=== PATIENT | male | born 1980 | race Two or more races ===

== ENCOUNTER 2018-10-04 20:22 | Emergency (ER) | payer SELFPAY ==
--- NOTE | 2018-10-04 21:59 | EKG REPORT ---
SEVERITY:- NORMAL ECG - SINUS RHYTHM : Confirmed by: Amol Cox MD 04-Oct-2018 21:58:30
[2018-10-05] MEDS ORDERED: DIAZEPAM 5 MG TABLET PO ONE (00:08)
--- NOTE | 2018-10-05 00:12 | ER Document Report ---
ED General - General Chief Complaint: Chest Pain Stated Complaint: ANXIETY Time Seen by Provider: 10/04/18 23:39 Notes: This is a 38-year-old male to the emergency department via EMS after having shortness of breath and chest pain and numbness to his face lips and fingers. Patient states that he is under a lot of stress. 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 He and his boss have not been getting along. He misses his family. Began feeling like he was short of breath. His lips, fingers and hands went numb. He thought maybe he was having a heart attack so called 911. Feels completely back to normal at this time. States he has never felt that before. Denies any pain in his calf. No prior history of blood clots. No family history of heart attacks just diabetes. TRAVEL OUTSIDE OF THE [place] IN LAST 30 DAYS: No - HPI Onset: Just prior to arrival Quality of pain: No pain Severity: Moderate Pain Level: Denies Associated symptoms: Shortness of breath, Other - Palpitations and numbness to his face and hands. - Related Data Allergies/Adverse Reactions: No Known Allergies Allergy (Unverified 10/04/18 21:31) Past Medical History - General Information source: Patient - Social History Smoking Status: Never Smoker Frequency of alcohol use: None Drug Abuse: Marijuana Lives with: Family Family History: DM Patient has suicidal ideation: No Patient has homicidal ideation: No - Medical History Medical History: Negative Renal/ Medical History: Denies: Hx Peritoneal Dialysis Review of Systems - Review of Systems Notes: Constitutional: denies: Chills, Diaphoresis, Fever, Malaise, Weakness EENT: denies: Eye discharge, Blurred vision, Tearing, Double vision, Nose congestion, Nose discharge, Throat swelling, Mouth pain Cardiovascular: denies: Heart racing, Orthopnea, Dyspnea, +Chest pain, + Palpitations, Respiratory: denies: Cough, Hurts to breathe, Wheezing, +Shortness of breath Gastrointestinal: denies: Abdominal pain, Diarrhea, Nausea, Vomiting, Black stools, bright red blood in stool Genitourinary: denies: Burning, Dysuria, Discharge, Frequency, Flank pain, Hematuria Musculoskeletal: denies: Joint pain, Joint swelling, Muscle pain, Muscle stiffness, back pain Hematologic/Lymphatic: denies: Anemia, Easy bleeding, Easy bruising, Blood clots Neurological/Psychological: denies: Confusion, Dementia, Depression, Loss of consciousness Skin: No lesions, no masses, no skin breakdown, no abscesses Physical Exam - Vital signs Vitals: Temp Pulse Resp BP Pulse Ox 97.7 F 83 20 129/86 H 100 10/04/18 20:29 10/04/18 20:29 10/04/18 20:29 10/04/18 20:29 10/04/18 20:29 Interpretation: Normal - General General appearance: Appears well, Alert - HEENT Head: Normocephalic, Atraumatic Eyes: Normal Pupils: PERRL - Respiratory Respiratory status: No respiratory distress Chest status: Nontender Breath sounds: Normal Chest palpation: Normal - Cardiovascular Rhythm: Regular Heart sounds: Normal auscultation Murmur: No - Abdominal Inspection: Normal Distension: No distension Bowel sounds: Normal Tenderness: Nontender Organomegaly: No organomegaly - Back Back: Normal, Nontender - Extremities General upper extremity: Normal inspection, Nontender, Normal color, Normal ROM, Normal temperature General lower extremity: Normal inspection, Nontender, Normal color, Normal ROM, Normal temperature, Normal weight bearing. No: Luan's sign - Neurological Neuro grossly intact: Yes Cognition: Normal Orientation: AAOx4 [place] Coma Scale Eye Opening: Spontaneous [place] Coma Scale Verbal: Oriented [place] Coma Scale Motor: Obeys Commands [place] Coma Scale Total: 15 Speech: Normal Motor strength normal: LUE, RUE, LLE, RLE Sensory: Normal - Psychological Associated symptoms: Normal affect, Normal mood - Skin Skin Temperature: Warm Skin Moisture: Dry Skin Color: Normal Course - Re-evaluation Re-evalutation: 10/05/18 00:16 Patient's physical exam is unremarkable. His vital signs are completely normal. He has no chest pain. What he is describing was a hyperventilation associated with more of a panic attack. The bulk of the conversation I had with the patient he is talking about how miserable he is now with his current job and how he wants to go home back to [place]. I am going to give him some Valium as he does have quite a bit of anxiety. I think this will help him get through this stressful situation. He does not present with symptoms consistent with a heart attack. He has a heart score of 1. I believe he is stable for discharge at this time. His EKG is normal and read by brewery representative as normal. His lungs are clear. 10/05/18 00:21 Accu-Chek 99. - Vital Signs Vital signs: Temp Pulse Resp BP Pulse Ox 97.9 F 83 18 121/66 99 10/04/18 23:30 10/04/18 20:29 10/04/18 23:01 10/04/18 23:01 10/04/18 23:01 - EKG Interpretation by Nv EKG shows normal: Sinus rhythm, [place], Intervals, QRS Complexes, ST-T Waves Discharge - Discharge Clinical Impression: Hyperventilation syndrome, Anxiety Condition: Good Disposition: HOME, SELF-CARE Instructions: Anxiety ([facility]), Hyperventilation ([facility]) Additional Instructions: Make an appointment follow-up with your regular doctor. If the symptoms are getting worse please return for repeat evaluation. Prescriptions: Diazepam [Valium 5 mg Tablet] 5 mg PO QHS PRN 15 Days #15 tablet PRN Reason: Anxiety/Agitation
[2018-10-05 00:33] VITALS: BP 140/91
== END 2018-10-05 00:33 | disposition home or self-care (01) ==
LOC: ER 20:22
DX: F41.9 Anxiety disorder, unspecified (principal); F45.8 Other somatoform disorders; F43.9 Reaction to severe stress, unspecified; R07.9 Chest pain, unspecified; R06.02 Shortness of breath; R00.2 Palpitations; F12.10 Cannabis abuse, uncomplicated
CPT/HCPCS: 82962; 93005; 93010; 99284